=== PATIENT | female | born 1945 | race Caucasian/White ===

== ENCOUNTER 2016-06-05 19:42 | Emergency (ER) | payer MEDICARE ==
[2016-06-05] MEDS ORDERED: ONDANSETRON 4 MG TAB.RAPDIS PO ONE (21:23)
--- NOTE | 2016-06-05 21:23 | ER Document Report ---
ED Medical Screen (RME) - General Stated Complaint: HEADACHE,NAUSEA Time seen by provider: 21:21 Mode of Arrival: Ambulatory Information source: Patient Notes: 71-year-old female presents to ED for nausea flank pain headache and vomiting since last night about 8:00. She was diagnosed with UTI yesterday and the primary doctor started her on on Bactrim yesterday. She's not able to keep the medicine down she vomits every time she takes. I have greeted and performed a rapid initial assessment of this patient. A comprehensive ED assessment and evaluation of the patient, analysis of test results and completion of medical decision making process will be conducted by an additional ED providers. TRAVEL OUTSIDE OF THE [place] IN LAST 30 DAYS: No - Related Data Allergies/Adverse Reactions: ibuprofen [From Motrin] Allergy (Mild, Verified 11/10/12 15:53) bleeding mucus membranes naproxen [From Naprosyn] Allergy (Mild, Verified 11/10/12 15:53) bleeding gums NSAID Allergy (Uncoded 11/17/14 18:42) Past Medical History - Past Medical History Cardiac Medical History: Denies: Hx Heart Attack, Hx Hypertension Pulmonary Medical History: Denies: Hx Asthma Neurological Medical History: Reports: Hx Migraine. Denies: Hx Cerebrovascular Accident, Hx Seizures GI Medical History: Denies: Hx Hepatitis, Hx Hiatal Hernia, Hx Ulcer Musculoskeltal Medical History: Reports Hx Arthritis - rheumatoid Infectious Medical History: Denies: Hx Hepatitis Past Surgical History: Reports: Hx Appendectomy, Hx Hysterectomy, Hx Orthopedic Surgery - B shoulder, R hip/replacement Cervical fusion. Denies: Hx Mastectomy , Hx Open Heart Surgery, Hx Pacemaker - Immunizations Hx Diphtheria, Pertussis, Tetanus Vaccination: Yes
[2016-06-05] MEDS ORDERED: NORMAL SALINE 1000 ML 1,000 ML IV ONE ×2 (21:24→23:34)
[2016-06-05] MEDS ORDERED: ONDANSETRON HCL INJ/PF 4 MG/2 ML SDV IV ONE (21:25)
[2016-06-05] MEDS ORDERED: CEFTRIAXONE 1 GM/D5W RTU 50 ML IV ONE (21:25)
[2016-06-05] MEDS ORDERED: HYDROMORPHONE HCL INJ/PF 2 MG/ML AMPULE IV ONE (22:06)
--- NOTE | 2016-06-05 22:44 | ER Document Report ---
ED General - General Chief Complaint: Flank Pain Stated Complaint: HEADACHE,NAUSEA Mode of Arrival: Ambulatory Information source: Patient Notes: 71-year-old female history of multiple urinary tract infections who was recently diagnosed with a urinary tract infection yesterday started on Bactrim presents with complaints of continued back pain nausea vomiting. Patient states she has nausea vomiting episodes every time she gets a UTI. Denies any fevers. Patient has been unable to hold down her Bactrim. Patient has taken Zofran at home TRAVEL OUTSIDE OF THE [place] IN LAST 30 DAYS: No - HPI Onset: Yesterday Onset/Duration: Sudden Quality of pain: Achy Severity: Mild Pain Level: 1 Associated symptoms: Nausea, Vomiting Exacerbated by: Denies Relieved by: Denies Similar symptoms previously: Yes Recently seen / treated by doctor: Yes - Related Data Allergies/Adverse Reactions: ibuprofen [From Motrin] Allergy (Mild, Verified 06/05/16 21:21) bleeding mucus membranes naproxen [From Naprosyn] Allergy (Mild, Verified 06/05/16 21:21) bleeding gums NSAID Allergy (Uncoded 06/05/16 21:21) Past Medical History - General Information source: Patient - Social History Smoking Status: Never Smoker Cigarette use (# per day): No Chew tobacco use (# tins/day): No Smoking Education Provided: No Frequency of alcohol use: None Drug Abuse: None Family History: Reviewed & Not Pertinent Patient has suicidal ideation: No Patient has homicidal ideation: No - Past Medical History Cardiac Medical History: Denies: Hx Heart Attack, Hx Hypertension Pulmonary Medical History: Denies: Hx Asthma Neurological Medical History: Reports: Hx Migraine. Denies: Hx Cerebrovascular Accident, Hx Seizures Renal/ Medical History: Denies: Hx Peritoneal Dialysis GI Medical History: Denies: Hx Hepatitis, Hx Hiatal Hernia, Hx Ulcer Musculoskeltal Medical History: Reports Hx Arthritis - rheumatoid Infectious Medical History: Denies: Hx Hepatitis Past Surgical History: Reports: Hx Appendectomy, Hx Hysterectomy, Hx Orthopedic Surgery - B shoulder, R hip/replacement Cervical fusion. Denies: Hx Mastectomy , Hx Open Heart Surgery, Hx Pacemaker - Immunizations Hx Diphtheria, Pertussis, Tetanus Vaccination: Yes Review of Systems - Review of Systems Notes: REVIEW OF SYSTEMS: CONSTITUTIONAL : Denies fever, chills, or sweats. Denies recent illness. EENT: Denies eye, ear, throat, or mouth pain or symptoms. Denies nasal or sinus congestion or discharge. Denies throat, tongue, or mouth swelling or difficulty swallowing. CARDIOVASCULAR: Denies chest pain. Denies palpitations or racing or irregular heart beat. Denies ankle edema. RESPIRATORY: Denies cough, cold, or chest congestion. Denies shortness of breath, difficulty breathing, or wheezing. GASTROINTESTINAL: Admits to left flank pain GENITOURINARY: Admits to burning on urination FEMALE GENITOURINARY: Denies vaginal bleeding, heavy or abnormal periods, irregular periods. Denies vaginal discharge or odor. MUSCULOSKELETAL: Denies back or neck pain or stiffness. Denies joint pain or swelling. SKIN: Denies rash, lesions or sores. HEMATOLOGIC : Denies easy bruising or bleeding. LYMPHATIC: Denies swollen, enlarged glands. NEUROLOGICAL: Denies confusion or altered mental status. Denies passing out or loss of consciousness. Denies dizziness or lightheadedness. Denies headache. Denies weakness or paralysis or loss of use of either side. Denies problems with gait or speech. Denies sensory loss, numbness, or tingling. Denies seizures. PSYCHIATRIC: Denies anxiety or stress. Denies depression, suicidal ideation, or homicidal ideation. ALL OTHER SYSTEMS REVIEWED AND NEGATIVE. Dictation was performed using [employer] voice recognition software PHYSICAL EXAMINATION: GENERAL: Well-appearing, well-nourished and in no acute distress. HEAD: Atraumatic, normocephalic. EYES: Pupils equal round and reactive to light, extraocular movements intact, conjunctiva are normal. ENT: Nares patent, oropharynx clear without exudates. Moist mucous membranes. NECK: Normal range of motion, supple without lymphadenopathy LUNGS: Breath sounds clear to auscultation bilaterally and equal. No wheezes rales or rhonchi. HEART: Regular rate and rhythm without murmurs ABDOMEN: Soft, nontender, nondistended abdomen. No guarding, no rebound. No masses appreciated. Left CVA tenderness Female : deferred Musculoskeletal: Normal range of motion, no pitting or edema. No cyanosis. NEUROLOGICAL: Cranial nerves grossly intact. Normal speech, normal gait. Normal sensory, motor exams PSYCH: Normal mood, normal affect. SKIN: Warm, Dry, normal turgor, no rashes or lesions noted. Physical Exam - Vital signs Vitals: Temp Pulse Resp BP Pulse Ox 98.1 F 96 16 145/63 H 97 06/05/16 21:24 06/05/16 21:24 06/05/16 21:24 06/05/16 21:24 06/05/16 21:24 Course - Re-evaluation Re-evalutation: 06/05/16 22:47 Patient has probable kidney infection, Jose Raul is pending she'll be given antibiotics and is otherwise stable 06/05/16 23:34 pt feels much better, will ocntinue fluid hydration 06/06/16 00:07 Patient's urinalysis is pending still 06/06/16 00:31 Patient otherwise looks well at this time, I will discharge home once fluids have finished After performing a Medical Screening Examination, I estimate there is LOW risk for ACUTE APPENDICITIS, BOWEL OBSTRUCTION, ACUTE CHOLECYSTITIS, PERFORATED DIVERTICULITIS, INCARCERATED HERNIA, PANCREATITIS, PELVIC INFLAMMATORY DISEASE, PERFORATED ULCER, ECTOPIC , or TUBO-OVARIAN ABSCESS, thus I consider the discharge disposition reasonable. Also, there is no evidence or peritonitis , sepsis, or toxicity. The patient and I have discussed the diagnosis and risks , and we agree with discharging home with close follow-up with the understanding that symptoms and presentations can change. We also discussed returning to the Emergency Department immediately if new or worsening symptoms occur. We have discussed the symptoms which are most concerning (e.g., bloody stool, fever, changing or worsening pain, vomiting) that necessitate immediate return. - Vital Signs Vital signs: Temp Pulse Resp BP Pulse Ox 98.1 F 96 16 145/63 H 97 06/05/16 21:24 06/05/16 21:24 06/05/16 21:24 06/05/16 21:24 06/05/16 21:24 - Laboratory Result Diagrams: 06/05/16 22:44 06/05/16 22:44 Laboratory results interpreted by me: 06/05/16 06/05/16 22:44 22:44 WBC 14.7 H Seg Neuts % (Manual) 91 H Lymphocytes % (Manual) 1 L Abs Neuts (Manual) 13.4 H Abs Lymphs (Manual) 0.1 L Sodium 134.9 L AST 39 H Discharge - Discharge Clinical Impression: Nausea vomiting and diarrhea Urinary tract infection Qualifiers: Urinary tract infection type: site unspecified Hematuria presence: without hematuria Qualified Code(s): N39.0 - Urinary tract infection, site not specified Condition: Stable Disposition: HOME, SELF-CARE Instructions: Urinary Tract Infection ([facility]), Vomiting ([facility]) Prescriptions: Oxycodone HCl/Acetaminophen [Percocet 5-325 mg Tablet] 1 - 2 tab PO Q4H PRN #15 tablet PRN Reason: Promethazine HCl 25 mg PO Q8 #30 tablet Promethazine HCl 25 mg RC Q8 #20 supp.rect Referrals: DEANGELO QUAN MD [Primary Care Provider] - Follow up tomorrow
[2016-06-05 23:03] LABS: HEMATOCRIT 39.5 % (36.0-47.0); HEMOGLOBIN 13.4 g/dL (12.0-15.5); HGB HCT DIFFERENCE 0.7; MEAN CORPUSCULAR HEMOGLOBIN 32.4 pg (27.0-33.4); MEAN CORPUSCULAR VOLUME 95 fl (80-97); RED BLOOD COUNT 4.15 10^6/uL (3.72-5.28); RED CELL DISTRIBUTION WIDTH 12.7 % (11.5-14.0); WHITE BLOOD COUNT 14.7 10^3/uL (4.0-10.5)
[2016-06-05 23:16] LABS: ALANINE AMINOTRANSFERASE 38 U/L (9-52); ALKALINE PHOSPHATASE 85 U/L (38-126); ANION GAP 10 (5-19); ASPARTATE AMINO TRANSFERASE 39 U/L (14-36); BILIRUBIN,TOTAL 1.1 mg/dL (0.2-1.3); BLOOD UREA NITROGEN 15 mg/dL (7-20); CALCIUM 9.5 mg/dL (8.4-10.2); CARBON DIOXIDE 27 mmol/L (22-30); CHLORIDE 98 mmol/L (98-107); CREATININE RESULT 0.89 mg/dL (0.52-1.25); GLUCOSE 101 mg/dL (75-110); SODIUM 134.9 mmol/L (137-145)
[2016-06-05 23:23] LABS: BASOPHILS % (MANUAL) 1 % (0-2); EOSINOPHILS % (MANUAL) 2 % (0-6); LYMPHOCYTES % (MANUAL) 1 % (13-45); TOTAL CELLS COUNTED 100
[2016-06-05 23:24] LABS: RBC MORPHOLOGY COMMENT NORMO-CYTIC/CHROMIC
[2016-06-06] MEDS ORDERED: DIPHENHYDRAMINE HCL 50 MG/ML VIAL IV ONE (00:17)
[2016-06-06] MEDS ORDERED: METOCLOPRAMIDE HCL INJ/PF 10 MG/2 ML SDV IV ONE (00:18)
[2016-06-06 00:27] LABS: APPEARANCE,URINE SLIGHTLY-CLOUDY; BILIRUBIN,URINE NEGATIVE (NEGATIVE); GLUCOSE, URINE NEGATIVE (NEGATIVE); KETONES,URINE TRACE mg/dL (NEGATIVE); LEUKOCYTE ESTERASE,URINE LARGE (NEGATIVE); NITRITE,URINE POSITIVE (NEGATIVE); PROTEIN,URINE NEGATIVE (NEGATIVE); URINE SPECIFIC GRAVITY 1.009; UROBILINOGEN,URINE NEGATIVE mg/dL (<2.0)
[2016-06-06 01:00] VITALS: BP 133/62
== END 2016-06-06 00:55 | disposition home or self-care (01) ==
LOC: ER 19:42
DX: N39.0 Urinary tract infection, site not specified (principal); R11.2 Nausea with vomiting, unspecified; R19.7 Diarrhea, unspecified; R10.9 Unspecified abdominal pain; R30.0 Dysuria; Z88.6 Allergy status to analgesic agent; Z88.8 Allergy status to other drugs, medicaments and biological substances; Z90.49 Acquired absence of other specified parts of digestive tract; Z90.710 Acquired absence of both cervix and uterus
CPT/HCPCS: 99283; 96361; 96375; 96365; 36415; 87040; 87086; 85025; 87088; 80053; 81001; 87186; J1200; J2765; J1170; J2405; J0696

== ENCOUNTER → 2016-06-23 | Outpatient (CLI) | payer MEDICARE ==
[2016-06-23 15:02] LABS: BLOOD UREA NITROGEN 8 mg/dL (7-20)
== END ==
LOC: OD 13:27
PROVIDERS: ATTEND Urology
DX: N39.0 Urinary tract infection, site not specified (principal)
CPT/HCPCS: 36415; 82565; 84520

== ENCOUNTER 2016-07-11 16:42 | Emergency (ER) | payer MEDICARE ==
[2016-07-11] MEDS ORDERED: ONDANSETRON 4 MG TAB.RAPDIS PO ONE (16:55)
--- NOTE | 2016-07-11 16:56 | ER Document Report ---
ED Medical Screen (RME) - General Stated Complaint: HEADACHE, VOMITING Mode of Arrival: Wheelchair Information source: Patient Notes: Patient woke up with headache pain this morning and has had nausea and vomiting. Patient took Imitrex at home relief of her symptoms. Patient states she has similar headaches like this 2 weeks ago. Patient denies any fever. Patient denies any head injury. Patient has been diagnosed with Escherichia coli in her urine and had a CAT scan to further evaluate this infection. hx: Lupus, rheumatoid arthritis, orthopedic surgery I have greeted and performed a rapid initial assessment of this patient. A comprehensive ED assessment and evaluation of the patient, analysis of test results and completion of the medical decision making process will be conducted by additional ED providers. TRAVEL OUTSIDE OF THE [place] IN LAST 30 DAYS: No - Related Data Allergies/Adverse Reactions: ibuprofen [From Motrin] Allergy (Mild, Verified 07/11/16 16:55) bleeding mucus membranes naproxen [From Naprosyn] Allergy (Mild, Verified 07/11/16 16:55) bleeding gums NSAID Allergy (Uncoded 07/11/16 16:55) Past Medical History - Past Medical History Cardiac Medical History: Denies: Hx Heart Attack, Hx Hypertension Pulmonary Medical History: Denies: Hx Asthma Neurological Medical History: Reports: Hx Migraine. Denies: Hx Cerebrovascular Accident, Hx Seizures Renal/ Medical History: Denies: Hx Peritoneal Dialysis GI Medical History: Denies: Hx Hepatitis, Hx Hiatal Hernia, Hx Ulcer Musculoskeltal Medical History: Reports Hx Arthritis - rheumatoid Infectious Medical History: Denies: Hx Hepatitis Past Surgical History: Reports: Hx Appendectomy, Hx Hysterectomy, Hx Orthopedic Surgery - B shoulder, R hip/replacement Cervical fusion. Denies: Hx Mastectomy , Hx Open Heart Surgery, Hx Pacemaker - Immunizations Hx Diphtheria, Pertussis, Tetanus Vaccination: Yes Physical Exam - Neurological Cognition: Normal Bharathi Coma Scale Eye Opening: Spontaneous [place] Coma Scale Verbal: Oriented Bharathi Coma Scale Motor: Obeys Commands [place] Coma Scale Total: 15
--- NOTE | 2016-07-11 21:30 | ER Document Report ---
ED Headache - General Chief Complaint: Headache Stated Complaint: HEADACHE, VOMITING Time seen by provider: 21:30 Mode of Arrival: Wheelchair Information source: Patient TRAVEL OUTSIDE OF THE [place] IN LAST 30 DAYS: No - HPI Patient complains to provider of: Headache, "Migraine" Patient reports: Frequent migraines, Hx chronic headaches Onset: This morning Onset was: Gradual Timing: Still present Quality of pain: Achy, Pressure Severity: Moderate Pain Level: 4 Associated symptoms: Nausea/vomiting, Photophobia Exacerbated by: Light Similar symptoms previously: Yes Recently seen / treated by doctor: Yes Notes: Patient is a 71-year-old female who presents to the emergency room complaining of headache with nausea this started around 6 AM and worsened throughout the day , she denies any injury, no fever or chills, no sinus congestion, she does report a history of similar symptoms in the past and was seen in this emergency room approximately 2 weeks ago for the same, her headache resolved after her visit here 2 weeks ago and did not return again until today, she does report there has been some possible coincidental correlation with urinary tract infections causing her headaches, she denies any urinary symptoms today and is currently taking Macrobid - Related Data Allergies/Adverse Reactions: ibuprofen [From Motrin] Allergy (Mild, Verified 07/11/16 16:55) bleeding mucus membranes naproxen [From Naprosyn] Allergy (Mild, Verified 07/11/16 16:55) bleeding gums NSAID Allergy (Uncoded 07/11/16 16:55) Past Medical History - General Information source: Patient - Social History Smoking Status: Never Smoker Family History: Reviewed & Not Pertinent - Past Medical History Cardiac Medical History: Denies: Hx Heart Attack, Hx Hypertension Pulmonary Medical History: Denies: Hx Asthma Neurological Medical History: Reports: Hx Migraine. Denies: Hx Cerebrovascular Accident, Hx Seizures Renal/ Medical History: Denies: Hx Peritoneal Dialysis GI Medical History: Denies: Hx Hepatitis, Hx Hiatal Hernia, Hx Ulcer Musculoskeltal Medical History: Reports Hx Arthritis - rheumatoid Infectious Medical History: Denies: Hx Hepatitis Past Surgical History: Reports: Hx Appendectomy, Hx Hysterectomy, Hx Orthopedic Surgery - B shoulder, R hip/replacement Cervical fusion. Denies: Hx Mastectomy , Hx Open Heart Surgery, Hx Pacemaker - Immunizations Hx Diphtheria, Pertussis, Tetanus Vaccination: Yes Review of Systems - Review of Systems Constitutional: No symptoms reported EENT: No symptoms reported Cardiovascular: No symptoms reported Respiratory: No symptoms reported Gastrointestinal: Nausea Genitourinary: No symptoms reported Female Genitourinary: No symptoms reported Musculoskeletal: No symptoms reported Skin: No symptoms reported Hematologic/Lymphatic: No symptoms reported Neurological/Psychological: Headaches -: Yes All other systems reviewed and negative Physical Exam - Vital signs Vitals: Temp Pulse Resp BP Pulse Ox 97.7 F 86 14 154/76 H 99 07/11/16 16:55 07/11/16 16:55 07/11/16 16:55 07/11/16 16:55 07/11/16 16:55 Interpretation: Normal - General General appearance: Alert In distress: Mild - Appears in pain - HEENT Head: Normocephalic, Atraumatic Eyes: Normal Conjunctiva: Normal Extraocular movements intact: Yes Eyelashes: Normal Pupils: PERRL - Respiratory Respiratory status: No respiratory distress Chest status: Nontender Breath sounds: Normal Chest palpation: Normal - Cardiovascular Rhythm: Regular Heart sounds: Normal auscultation Murmur: No - Abdominal Inspection: Normal Distension: No distension Bowel sounds: Normal Tenderness: Nontender Organomegaly: No organomegaly - Back Back: Normal, Nontender - Extremities General upper extremity: Normal inspection, Nontender, Normal color, Normal ROM , Normal temperature General lower extremity: Normal inspection, Nontender, Normal color, Normal ROM , Normal temperature, Normal weight bearing. No: Marie's sign - Neurological Neuro grossly intact: Yes Cognition: Normal Orientation: AAOx4 Bharathi Coma Scale Eye Opening: Spontaneous Bharathi Coma Scale Verbal: Oriented Bharathi Coma Scale Motor: Obeys Commands Bharathi Coma Scale Total: 15 Speech: Normal Motor strength normal: LUE, RUE, LLE, RLE Sensory: Normal - Psychological Associated symptoms: Normal affect, Normal mood - Skin Skin Temperature: Warm Skin Moisture: Dry Skin Color: Normal Course - Re-evaluation Re-evalutation: 07/11/16 23:47 Patient reports feeling much better and wants to go home - Vital Signs Vital signs: Temp Pulse Resp BP Pulse Ox 98.1 F 94 18 135/59 H 97 07/12/16 01:14 07/12/16 01:14 07/12/16 01:14 07/12/16 01:14 07/12/16 01:14 Discharge - Discharge Clinical Impression: Headache Qualifiers: Headache type: unspecified Headache chronicity pattern: acute headache Intractability: not intractable Qualified Code(s): R51 - Headache Condition: Stable Disposition: HOME, SELF-CARE Instructions: Headache ([facility]) Additional Instructions: Follow up with your primary care provider in one to 2 days. Return to the emergency room immediately if symptoms worsen or any additional concerns. Referrals: ADOLFO QUAN MD [Primary Care Provider] - Follow up as needed
[2016-07-11] MEDS ORDERED: METOCLOPRAMIDE HCL INJ/PF 10 MG/2 ML SDV IV ONE ×2 (21:31→22:53)
[2016-07-11] MEDS ORDERED: MORPHINE SULFATE 10 MG/ML INJ IV ONE (21:31)
[2016-07-11] MEDS ORDERED: NORMAL SALINE 1000 ML 1,000 ML IV PRN ×2 (21:31→23:52)
[2016-07-11] MEDS ORDERED: HYDROMORPHONE HCL INJ/PF 2 MG/ML AMPULE IV ONE (22:53)
[2016-07-11] MEDS ORDERED: DIAZEPAM INJ 10 MG/2 ML DISP.SYRIN IV ONE (22:54)
[2016-07-11] MEDS: NORMAL SALINE 1000 ML 1,000 ML IV PRN ×2 (23:40→23:58)
[2016-07-11] MEDS ORDERED: KETOROLAC TROMETHAMINE INJ/PF 30 MG/1 ML SDV IV ONE (23:52)
[2016-07-11] MEDS ORDERED: ONDANSETRON HCL INJ/PF 4 MG/2 ML SDV IV ONE (23:52)
[2016-07-12 01:16] VITALS: BP 135/59
== END 2016-07-12 01:21 | disposition home or self-care (01) ==
LOC: ER 16:42
DX: R51 Headache (principal); R11.10 Vomiting, unspecified
CPT/HCPCS: 99283; 96361; 96374; 96375; A9270; J1885; J2765; J2270; J2405; J7030; S0119

== ENCOUNTER → 2016-07-15 | Outpatient (CLI) | payer MEDICARE | LOC: RAD 16:15 | PROVIDERS: ATTEND Internal Medicine Rheumatology | DX: M54.16 Radiculopathy, lumbar region (principal) | CPT/HCPCS: 72158; A9577 ==

== ENCOUNTER 2016-11-15 13:19 | Emergency (ER) | payer MEDICARE ==
[2016-11-15] MEDS ORDERED: KETOROLAC TROMETHAMINE INJ/PF 30 MG/1 ML SDV IV ONE (13:32)
[2016-11-15] MEDS ORDERED: ONDANSETRON HCL INJ/PF 4 MG/2 ML SDV IV ONE (13:32)
--- NOTE | 2016-11-15 13:34 | ER Document Report ---
ED Medical Screen (RME) - General Chief Complaint: Headache Stated Complaint: HEADACHE Time Seen by Provider: 11/15/16 13:25 Mode of Arrival: Ambulatory Information source: Patient TRAVEL OUTSIDE OF THE [place] IN LAST 30 DAYS: No - HPI Patient complains to provider of: headache Onset: This morning Onset/Duration: Gradual Quality of pain: Achy, Fullness, Pressure Severity: Moderate Pain Level: 4 Associated Symptoms: Nausea, Vomiting Notes: 11/15/16 13:33 Patient is a 71-year-old female who presents to the emergency room complaining of headache that started approximately 5 hours ago and has worsened, she reports nausea and vomiting, denies fever, no head injury, has a history of prior episodes of similar headaches in the past - Related Data Allergies/Adverse Reactions: ibuprofen [From Motrin] Allergy (Mild, Verified 11/15/16 13:23) bleeding mucus membranes naproxen [From Naprosyn] Allergy (Mild, Verified 11/15/16 13:23) bleeding gums NSAID Allergy (Uncoded 11/15/16 13:23) Past Medical History - Past Medical History Cardiac Medical History: Denies: Hx Heart Attack, Hx Hypertension Pulmonary Medical History: Denies: Hx Asthma Neurological Medical History: Reports: Hx Migraine. Denies: Hx Cerebrovascular Accident, Hx Seizures Renal/ Medical History: Denies: Hx Peritoneal Dialysis GI Medical History: Denies: Hx Hepatitis, Hx Hiatal Hernia, Hx Ulcer Musculoskeltal Medical History: Reports Hx Arthritis - rheumatoid Infectious Medical History: Denies: Hx Hepatitis Past Surgical History: Reports: Hx Appendectomy, Hx Hysterectomy, Hx Orthopedic Surgery - B shoulder, R hip/replacement Cervical fusion. Denies: Hx Mastectomy , Hx Open Heart Surgery, Hx Pacemaker - Immunizations Hx Diphtheria, Pertussis, Tetanus Vaccination: Yes Physical Exam - Vital signs Vitals: Temp Pulse Resp BP Pulse Ox 97.6 F 85 20 172/86 H 99 11/15/16 13:22 11/15/16 13:22 11/15/16 13:22 11/15/16 13:22 11/15/16 13:22 Course - Vital Signs Vital signs: Temp Pulse Resp BP Pulse Ox 97.6 F 85 20 172/86 H 99 11/15/16 13:22 11/15/16 13:22 11/15/16 13:22 11/15/16 13:22 11/15/16 13:22
[2016-11-15] MEDS: NORMAL SALINE 1000 ML 1,000 ML IV PRN ×2 (13:47→14:56)
[2016-11-15] MEDS ORDERED: METOCLOPRAMIDE HCL INJ/PF 10 MG/2 ML SDV IV ONE (14:35)
[2016-11-15] MEDS ORDERED: DIPHENHYDRAMINE HCL 50 MG/ML VIAL IV ONE (14:35)
[2016-11-15] MEDS ORDERED: NORMAL SALINE 1000 ML 1,000 ML IV PRN (14:35)
[2016-11-15] MEDS ORDERED: MORPHINE SULFATE 10 MG/ML INJ IV ONE (15:08)
[2016-11-15 15:39] VITALS: BP 155/65
--- NOTE | 2016-11-15 15:45 | ER Document Report ---
ED Headache - General Chief Complaint: Headache Stated Complaint: HEADACHE Time Seen by Provider: 11/15/16 13:25 Mode of Arrival: Ambulatory Information source: Patient TRAVEL OUTSIDE OF THE [place] IN LAST 30 DAYS: No - HPI Patient complains to provider of: Headache, "Migraine" Patient reports: Frequent migraines Onset: This morning Onset was: Gradual Timing: Still present Quality of pain: Achy, Fullness, Pressure Severity: Moderate Pain Level: 4 Associated symptoms: Nausea/vomiting Similar symptoms previously: Yes Recently seen / treated by doctor: Yes Notes: 71-year-old female presents to the emergency room for a headache that started approximately 5 hours prior to arrival, with pain and pressure, mainly in the frontal and temporal areas, she has nausea with vomiting that started after the headache, no fever, no head injury, history of similar headache previously - Related Data Allergies/Adverse Reactions: ibuprofen [From Motrin] Allergy (Mild, Verified 11/15/16 13:23) bleeding mucus membranes naproxen [From Naprosyn] Allergy (Mild, Verified 11/15/16 13:23) bleeding gums NSAID Allergy (Uncoded 11/15/16 13:23) Past Medical History - General Information source: Patient - Social History Smoking Status: Never Smoker Chew tobacco use (# tins/day): No Frequency of alcohol use: None Drug Abuse: None Family History: Reviewed & Not Pertinent - Past Medical History Cardiac Medical History: Denies: Hx Heart Attack, Hx Hypertension Pulmonary Medical History: Denies: Hx Asthma Neurological Medical History: Reports: Hx Migraine. Denies: Hx Cerebrovascular Accident, Hx Seizures Renal/ Medical History: Denies: Hx Peritoneal Dialysis GI Medical History: Denies: Hx Hepatitis, Hx Hiatal Hernia, Hx Ulcer Musculoskeltal Medical History: Reports Hx Arthritis - rheumatoid Infectious Medical History: Denies: Hx Hepatitis Past Surgical History: Reports: Hx Appendectomy, Hx Hysterectomy, Hx Orthopedic Surgery - B shoulder, R hip/replacement Cervical fusion. Denies: Hx Mastectomy , Hx Open Heart Surgery, Hx Pacemaker - Immunizations Hx Diphtheria, Pertussis, Tetanus Vaccination: Yes Review of Systems - Review of Systems Constitutional: No symptoms reported EENT: No symptoms reported Cardiovascular: No symptoms reported Respiratory: No symptoms reported Gastrointestinal: Nausea, Vomiting Genitourinary: No symptoms reported Female Genitourinary: No symptoms reported Musculoskeletal: No symptoms reported Skin: No symptoms reported Hematologic/Lymphatic: No symptoms reported Neurological/Psychological: Headaches -: Yes All other systems reviewed and negative Physical Exam - Vital signs Vitals: Temp Pulse Resp BP Pulse Ox 97.6 F 85 20 172/86 H 99 11/15/16 13:22 11/15/16 13:22 11/15/16 13:22 11/15/16 13:22 11/15/16 13:22 Interpretation: Hypertensive - General General appearance: Alert In distress: None Notes: Appears to be in pain - HEENT Head: Normocephalic, Atraumatic Eyes: Normal Conjunctiva: Normal Extraocular movements intact: Yes Eyelashes: Normal Pupils: PERRL - Respiratory Respiratory status: No respiratory distress - Cardiovascular Rhythm: Regular - Abdominal Inspection: Normal - Back Back: Normal - Extremities General upper extremity: Normal inspection, Nontender, Normal color, Normal ROM , Normal temperature General lower extremity: Normal inspection, Nontender, Normal color, Normal ROM , Normal temperature, Normal weight bearing. No: Marie's sign - Neurological Neuro grossly intact: Yes Cognition: Normal Orientation: AAOx4 Bharathi Coma Scale Eye Opening: Spontaneous [place] Coma Scale Verbal: Oriented [place] Coma Scale Motor: Obeys Commands Bharathi Coma Scale Total: 15 Speech: Normal Motor strength normal: LUE, RUE, LLE, RLE Sensory: Normal - Psychological Associated symptoms: Normal affect, Normal mood - Skin Skin Temperature: Warm Skin Moisture: Dry Skin Color: Normal Course - Re-evaluation Re-evalutation: 11/15/16 15:47 Patient reports feeling much better after several rounds of fluids and medications, pain is resolved and she is ready to go home, patient was given a prescription for Reglan as well as instructed to follow-up with her primary care provider and neurologist, advised to return if any additional concerns, patient acknowledges understanding and agreement with this plan - Vital Signs Vital signs: Temp Pulse Resp BP Pulse Ox 97.6 F 77 18 155/65 H 96 11/15/16 15:38 11/15/16 15:38 11/15/16 15:38 11/15/16 15:38 11/15/16 15:38 Discharge - Discharge Clinical Impression: Migraine headache Qualifiers: Migraine type: unspecified Status migrainosus presence: without status migrainosus Intractability: not intractable Qualified Code(s): G43.909 - Migraine, unspecified, not intractable, without status migrainosus Condition: Stable Disposition: HOME, SELF-CARE Instructions: Antinausea Medication ([facility]), Headache ([facility]), Toradol Injection ( [facility]) Additional Instructions: Follow up with your primary care provider in one to 2 days. Return to the emergency room immediately if symptoms worsen or any additional concerns. Prescriptions: Metoclopramide HCl [Reglan 10 mg Tablet] 1 - 2 tab PO ASDIR PRN #25 tablet PRN Reason:
== END 2016-11-15 15:50 | disposition home or self-care (01) ==
LOC: ER 13:19
DX: G43.909 Migraine, unspecified, not intractable, without status migrainosus (principal); R11.2 Nausea with vomiting, unspecified; Z88.6 Allergy status to analgesic agent; Z88.8 Allergy status to other drugs, medicaments and biological substances
CPT/HCPCS: 99284; 96361; 96374; 96375; J1200; J1885; J2765; J2270; J2405; J7030

== ENCOUNTER 2017-03-04 12:31 | Emergency (ER) | payer MEDICARE ==
[2017-03-04] MEDS ORDERED: NORMAL SALINE 1000 ML 1,000 ML IV ONE ×2 (13:08→14:36)
[2017-03-04] MEDS ORDERED: ONDANSETRON HCL INJ/PF 4 MG/2 ML SDV IV ONE (13:08)
--- NOTE | 2017-03-04 13:12 | ER Document Report ---
ED Medical Screen (RME) - General Chief Complaint: Vomiting Stated Complaint: VOMITING Time Seen by Provider: 03/04/17 13:07 Notes: The patient is a 72-year-old female, past medical history chronic pain from rheumatoid arthritis and lupus, presents with 2 days of nausea, vomiting and chest congestion. She saw her primary care physician yesterday and had a flu swab and chest x-ray, but she does not know the results. She is having abdominal cramping, but no abdominal pain. PE: Tachycardia, no abdominal tenderness, normal bowel sounds, no CVA tenderness I have greeted and performed a rapid initial assessment of this patient. A comprehensive ED assessment and evaluation of the patient, analysis of test results and completion of the medical decision making process will be conducted by additional ED providers. TRAVEL OUTSIDE OF THE [place] IN LAST 30 DAYS: No - Related Data Allergies/Adverse Reactions: ibuprofen [From Motrin] Allergy (Mild, Verified 03/04/17 12:44) bleeding mucus membranes naproxen [From Naprosyn] Allergy (Mild, Verified 03/04/17 12:44) bleeding gums NSAID Allergy (Uncoded 11/15/16 13:23) Past Medical History - Social History Chew tobacco use (# tins/day): No Frequency of alcohol use: None Drug Abuse: None - Past Medical History Cardiac Medical History: Denies: Hx Heart Attack, Hx Hypertension Pulmonary Medical History: Denies: Hx Asthma Neurological Medical History: Reports: Hx Migraine. Denies: Hx Cerebrovascular Accident, Hx Seizures Renal/ Medical History: Denies: Hx Peritoneal Dialysis GI Medical History: Denies: Hx Hepatitis, Hx Hiatal Hernia, Hx Ulcer Musculoskeltal Medical History: Reports Hx Arthritis - rheumatoid Infectious Medical History: Denies: Hx Hepatitis Past Surgical History: Reports: Hx Appendectomy, Hx Hysterectomy, Hx Orthopedic Surgery - B shoulder, R hip/replacement Cervical fusion. Denies: Hx Mastectomy , Hx Open Heart Surgery, Hx Pacemaker - Immunizations Hx Diphtheria, Pertussis, Tetanus Vaccination: Yes Physical Exam - Vital signs Vitals: Temp Pulse Resp BP Pulse Ox 98.5 F 115 H 20 156/80 H 95 03/04/17 12:42 03/04/17 12:42 03/04/17 12:42 03/04/17 12:42 03/04/17 12:42 Course - Vital Signs Vital signs: Temp Pulse Resp BP Pulse Ox 98.5 F 115 H 20 156/80 H 95 03/04/17 12:42 03/04/17 12:42 03/04/17 12:42 03/04/17 12:42 03/04/17 12:42
[2017-03-04 13:39] LABS: HEMATOCRIT 43.7 % (36.0-47.0); HEMOGLOBIN 15.4 g/dL (12.0-15.5); HGB HCT DIFFERENCE 2.5; MEAN CORPUSCULAR HEMOGLOBIN 32.7 pg (27.0-33.4); MEAN CORPUSCULAR HGB CONC 35.4 g/dL (32.0-36.0); MEAN CORPUSCULAR VOLUME 92 fl (80-97); RED BLOOD COUNT 4.73 10^6/uL (3.72-5.28); RED CELL DISTRIBUTION WIDTH 13.4 % (11.5-14.0); WHITE BLOOD COUNT 12.3 10^3/uL (4.0-10.5)
[2017-03-04 14:06] LABS: ALANINE AMINOTRANSFERASE 34 U/L (9-52); ALBUMIN 4.3 g/dL (3.5-5.0); ALKALINE PHOSPHATASE 113 U/L (38-126); ANION GAP 14 (5-19); ASPARTATE AMINO TRANSFERASE 29 U/L (14-36); BILIRUBIN,DIRECT 0.5 mg/dL (0.0-0.4); BLOOD UREA NITROGEN 11 mg/dL (7-20); CALCIUM 10.5 mg/dL (8.4-10.2); CARBON DIOXIDE 26 mmol/L (22-30); CHLORIDE 96 mmol/L (98-107); CREATINE KINASE 109 U/L (30-135); CREATININE RESULT 0.48 mg/dL (0.52-1.25); GLUCOSE 120 mg/dL (75-110); LIPASE 27.3 U/L (23-300); POTASSIUM 3.9 mmol/L (3.6-5.0); SODIUM 136.2 mmol/L (137-145); TOTAL PROTEIN 7.1 g/dL (6.3-8.2)
[2017-03-04 14:12] LABS: BAND NEUTROPHILS % (MANUAL) 1 % (3-5); BASOPHILS % (MANUAL) 0 % (0-2); EOSINOPHILS % (MANUAL) 1 % (0-6); LYMPHOCYTES % (MANUAL) 7 % (13-45); POLYCHROMASIA SLIGHT; TOTAL CELLS COUNTED 100; TOXIC GRANULATION SLIGHT
[2017-03-04] MEDS ORDERED: PROMETHAZINE HCL INJ 50 MG/1 ML VIAL IM ONE (14:35)
[2017-03-04] MEDS ORDERED: METOCLOPRAMIDE HCL INJ/PF 10 MG/2 ML SDV IV ONE (14:35)
[2017-03-04] MEDS ORDERED: OXYCODONE-ACETAMINOPHEN 5-325 MG TABLET PO ONE (15:13)
--- NOTE | 2017-03-04 15:16 | RADIOLOGY REPORT (SQ) ---
EXAM DESCRIPTION: CHEST PA/LAT COMPLETED DATE/TIME: 03/04/2017 2:56 pm REASON FOR STUDY: cough, hypoxemia COMPARISON: None. EXAM PARAMETERS: NUMBER OF VIEWS: two views TECHNIQUE: Digital Frontal and Lateral radiographic views of the chest acquired. RADIATION DOSE: NA LIMITATIONS: none FINDINGS: LUNGS AND PLEURA: No opacities, masses or pneumothorax. No pleural effusion. MEDIASTINUM AND HILAR STRUCTURES: No masses or contour abnormalities. HEART AND VASCULAR STRUCTURES: Mild cardiomegaly BONES: Osteoporotic. Old humeral head replacements. Lower cervical fusion hardware HARDWARE: None in the chest. OTHER: No other significant finding. IMPRESSION: Cardiomegaly. No acute infiltrates TECHNICAL DOCUMENTATION: JOB ID: [id number] [employer]- All Rights Reserved
[2017-03-04 16:54] LABS: APPEARANCE,URINE CLEAR; BILIRUBIN,URINE NEGATIVE (NEGATIVE); GLUCOSE, URINE 50 mg/dL (NEGATIVE); KETONES,URINE 80 mg/dL (NEGATIVE); LEUKOCYTE ESTERASE,URINE TRACE (NEGATIVE); NITRITE,URINE NEGATIVE (NEGATIVE); PROTEIN,URINE NEGATIVE (NEGATIVE); URINE SPECIFIC GRAVITY 1.008; UROBILINOGEN,URINE NEGATIVE mg/dL (<2.0)
--- NOTE | 2017-03-04 17:22 | ER Document Report ---
ED General - General Chief Complaint: Vomiting Stated Complaint: VOMITING Time Seen by Provider: 03/04/17 13:07 Mode of Arrival: Wheelchair Information source: Patient Notes: 72-year-old female who presents with complaints of nausea and vomiting which occurs every approximately 3 months presents with complaints of nausea vomiting. Patient denies any fevers or chills noted to be tachycardic on arrival TRAVEL OUTSIDE OF THE [place] IN LAST 30 DAYS: No - HPI Onset: Just prior to arrival Onset/Duration: Sudden Quality of pain: Cramping Severity: Mild Pain Level: 1 Associated symptoms: Nausea, Vomiting Exacerbated by: Denies Relieved by: Denies Similar symptoms previously: Yes Recently seen / treated by doctor: Yes - Related Data Allergies/Adverse Reactions: ibuprofen [From Motrin] Allergy (Mild, Verified 03/04/17 12:44) bleeding mucus membranes naproxen [From Naprosyn] Allergy (Mild, Verified 03/04/17 12:44) bleeding gums NSAID Allergy (Uncoded 11/15/16 13:23) Past Medical History - Social History Smoking Status: Former Smoker Cigarette use (# per day): No Chew tobacco use (# tins/day): No Smoking Education Provided: No Frequency of alcohol use: None Drug Abuse: None Family History: Reviewed & Not Pertinent Patient has suicidal ideation: No Patient has homicidal ideation: No - Past Medical History Cardiac Medical History: Denies: Hx Heart Attack, Hx Hypertension Pulmonary Medical History: Denies: Hx Asthma Neurological Medical History: Reports: Hx Migraine. Denies: Hx Cerebrovascular Accident, Hx Seizures Renal/ Medical History: Denies: Hx Peritoneal Dialysis GI Medical History: Denies: Hx Hepatitis, Hx Hiatal Hernia, Hx Ulcer Musculoskeltal Medical History: Reports Hx Arthritis - rheumatoid Infectious Medical History: Denies: Hx Hepatitis Past Surgical History: Reports: Hx Appendectomy, Hx Hysterectomy, Hx Orthopedic Surgery - B shoulder, R hip/replacement Cervical fusion. Denies: Hx Mastectomy , Hx Open Heart Surgery, Hx Pacemaker - Immunizations Hx Diphtheria, Pertussis, Tetanus Vaccination: Yes Review of Systems - Review of Systems Notes: REVIEW OF SYSTEMS: CONSTITUTIONAL : Denies fever, chills, or sweats. Denies recent illness. EENT: Denies eye, ear, throat, or mouth pain or symptoms. Denies nasal or sinus congestion or discharge. Denies throat, tongue, or mouth swelling or difficulty swallowing. CARDIOVASCULAR: Denies chest pain. Denies palpitations or racing or irregular heart beat. Denies ankle edema. RESPIRATORY: Denies cough, cold, or chest congestion. Denies shortness of breath, difficulty breathing, or wheezing. GASTROINTESTINAL: Admits to nausea vomiting GENITOURINARY: Denies difficulty urinating, painful urination, burning, frequency, blood in urine, or discharge. FEMALE GENITOURINARY: Denies vaginal bleeding, heavy or abnormal periods, irregular periods. Denies vaginal discharge or odor. MUSCULOSKELETAL: Denies back or neck pain or stiffness. Denies joint pain or swelling. SKIN: Denies rash, lesions or sores. HEMATOLOGIC : Denies easy bruising or bleeding. LYMPHATIC: Denies swollen, enlarged glands. NEUROLOGICAL: Denies confusion or altered mental status. Denies passing out or loss of consciousness. Denies dizziness or lightheadedness. Denies headache. Denies weakness or paralysis or loss of use of either side. Denies problems with gait or speech. Denies sensory loss, numbness, or tingling. Denies seizures. PSYCHIATRIC: Denies anxiety or stress. Denies depression, suicidal ideation, or homicidal ideation. ALL OTHER SYSTEMS REVIEWED AND NEGATIVE. PHYSICAL EXAMINATION: GENERAL: Well-appearing, well-nourished and in no acute distress. HEAD: Atraumatic, normocephalic. EYES: Pupils equal round and reactive to light, extraocular movements intact, conjunctiva are normal. ENT: Nares patent, oropharynx clear without exudates. Moist mucous membranes. NECK: Normal range of motion, supple without lymphadenopathy LUNGS: Breath sounds clear to auscultation bilaterally and equal. No wheezes rales or rhonchi. HEART: Initially tachycardic but then resolves after IV fluids ABDOMEN: Soft, nontender, nondistended abdomen. No guarding, no rebound. No masses appreciated. Female : deferred Musculoskeletal: Normal range of motion, no pitting or edema. No cyanosis. NEUROLOGICAL: Cranial nerves grossly intact. Normal speech, normal gait. Normal sensory, motor exams PSYCH: Normal mood, normal affect. SKIN: Warm, Dry, normal turgor, no rashes or lesions noted. Dictation was performed using [employer] voice recognition software Physical Exam - Vital signs Vitals: Temp Pulse Resp BP Pulse Ox 98.5 F 115 H 20 156/80 H 95 11/16/17 12:42 03/04/17 12:42 03/04/17 12:42 03/04/17 12:42 03/04/17 12:42 Course - Re-evaluation Re-evalutation: 03/05/17 00:29 Patient was immediately given IV fluids nausea control and notes significant improvement of her symptoms. There is no sign of a UTI which family notes is usually the cause of these symptoms. Therefore I will discharge with understanding the must return if there are any other concerns Patient and are very happy with care After performing a Medical Screening Examination, I estimate there is LOW risk for ACUTE APPENDICITIS, BOWEL OBSTRUCTION, ACUTE CHOLECYSTITIS, PERFORATED DIVERTICULITIS, INCARCERATED HERNIA, PANCREATITIS, PELVIC INFLAMMATORY DISEASE, PERFORATED ULCER, ECTOPIC , or TUBO-OVARIAN ABSCESS, thus I consider the discharge disposition reasonable. Also, there is no evidence or peritonitis , sepsis, or toxicity. I have reevaluated this patient multiple times and no significant life threatening changes are noted. The patient and I have discussed the diagnosis and risks, and we agree with discharging home with close follow-up with the understanding that symptoms and presentations can change. We also discussed returning to the Emergency Department immediately if new or worsening symptoms occur. We have discussed the symptoms which are most concerning (e.g., bloody stool, fever, changing or worsening pain, vomiting) that necessitate immediate return. - Vital Signs Vital signs: Temp Pulse Resp BP Pulse Ox 98.5 F 115 H 16 144/75 H 91 L 03/04/17 12:42 03/04/17 12:42 03/04/17 17:44 03/04/17 17:44 03/04/17 17:44 - Laboratory Result Diagrams: 03/04/17 13:23 03/04/17 13:23 Laboratory results interpreted by me: 03/04/17 03/04/17 03/04/17 13:23 13:23 16:20 WBC 12.3 H Seg Neuts % (Manual) 85 H Band Neutrophils % 1 L Lymphocytes % (Manual) 7 L Abs Neuts (Manual) 10.6 H Sodium 136.2 L Chloride 96 L Creatinine 0.48 L Glucose 120 H Calcium 10.5 H Direct Bilirubin 0.5 H Urine Glucose (UA) 50 H Urine Ketones 80 H Urine Blood SMALL H Ur Leukocyte Esterase TRACE H Discharge - Discharge Clinical Impression: Nausea vomiting and diarrhea, Tachycardia, Dehydration Condition: Stable Disposition: HOME, SELF-CARE Instructions: Vomiting ([facility]) Additional Instructions: Follow up with your physician tomorrow for further care or return to the ED IMMEDIATELY if symptoms worsen or new concerns occur. If you cannot afford to follow up with your primary care physician a list of low cost clinics have been provided at the end of your discharge papers as well. Prescriptions: Promethazine HCl [Phenergan 25 mg Tablet] 1 - 2 tab PO Q6H PRN #15 tablet PRN Reason:
[2017-03-04 18:10] VITALS: BP 144/75
--- NOTE | 2017-03-05 09:36 | EKG REPORT ---
SEVERITY:- ABNORMAL ECG - SINUS TACHYCARDIA RIGHT ATRIAL ABNORMALITY LEFT AXIS DEVIATION LEFT VENTRICULAR HYPERTROPHY : Confirmed by: Karlos Streeter 05-Mar-2017 09:34:53
== END 2017-03-04 18:10 | disposition home or self-care (01) ==
LOC: ER 12:31
DX: R11.2 Nausea with vomiting, unspecified (principal); R19.7 Diarrhea, unspecified; R00.0 Tachycardia, unspecified; E86.0 Dehydration; Z96.641 Presence of right artificial hip joint; Z87.891 Personal history of nicotine dependence; Z98.1 Arthrodesis status
CPT/HCPCS: 93005; 99284; 96361; 96374; 96375; 36415; 82550; 83690; 85025; 80053; 81001; 84484; 83605; 71020; 93010; J2765; A9270; J2405; J7030

== ENCOUNTER → 2017-05-21 | Outpatient (CLI) | payer MEDICARE ==
--- NOTE | 2017-05-21 16:05 | WOMENS IMAGING REPORT ---
EXAM DESCRIPTION: BILAT SCREENING MAMMO W/CAD COMPLETED DATE/TIME: 05/21/2017 3:34 pm REASON FOR STUDY: ROUTINE SCREENING; Z12.31 Z12.31 ENCNTR SCREEN MAMMOGRAM FOR MALIGNANT NEOPLASM O F LORRI COMPARISON: 2014, 2015 TECHNIQUE: Standard craniocaudal and mediolateral oblique views of each breast recorded using [employer] l acquisition. LIMITATIONS: None. FINDINGS: Findings present which are benign by mammographic criteria. No suspicious masses, calcifi cations or architectural distortion. Pertinent benign findings: Stable bilateral breast parenchymal calcifications are present Read with the assistance of CAD. .[facility] - R2 [employer] Version 1.3 .[facility] Imaging - R2 Cenova Version 1.3 .[facility] - R2 Cenova Version 2.4 .[facility] - R2 Cenova Version 2.4 .[facility] - R2 [employer] Version 9.2 Benign mammographic findings may include one or more of the following: Smooth masses, popcorn/rim/co arse calcifications, asymmetries, post-procedure changes, and lesions with long-standing stability. IMPRESSION: BENIGN MAMMOGRAPHIC FINDINGS. BIRADS 2 BREAST DENSITY: b. There are scattered areas of fibroglandular density. BIRAD: 2 BENIGN FINDING(S) RECOMMENDATION: ROUTINE SCREENING COMMENT: The patient has been notified of the results by letter per MQSA requirements. Additional no tification policies are in place for contacting patient with suspicious or incomplete findings. Quality ID #[id number]: The [employer] recommends an annual screening mammogram for women aged 40 years or over. This facility utilizes a reminder system to ensure that all patients receive reminder letters, and/or direct phone calls for appointments. This includes reminders for routine scr eening mammograms, diagnostic mammograms, or other Breast Imaging Interventions when appropriate. Th is patient will be placed in the appropriate reminder system. The [employer] (ACR) has developed recommendations for screening MRI of the breast s in certain patient populations, to be used in conjunction with mammography. Breast MRI surveillanc e may be appropriate for women with more than 20% lifetime risk of developing breast cancer as deter mined by genetic testing, significant family history of the disease, or history of mantle radiation f or Hodgkins Disease. ACR Practice Guidelines 2008. TECHNICAL DOCUMENTATION: FINDING NUMBER: (1) ASSESSMENT: (1) JOB ID: [id number] [employer]- All Rights Reserved
== END ==
LOC: WI 15:05
PROVIDERS: ATTEND Internal Medicine
DX: Z12.31 Encounter for screening mammogram for malignant neoplasm of breast (principal)
CPT/HCPCS: 77067

== ENCOUNTER 2017-06-06 11:25 | Emergency (ER) | payer MEDICARE ==
--- NOTE | 2017-06-06 11:39 | ER Document Report ---
ED Neck/Back Problem - General Mode of Arrival: Medic Information source: Patient TRAVEL OUTSIDE OF THE [place] IN LAST 30 DAYS: No - HPI Patient complains to provider of: Pain, Lower back Onset: Other - 3-4 DAYS Onset: Gradual Timing: Constant, Waxing and waning Quality of pain: Burning Severity: Moderate Context: Other - NO INJURY Recent injury: No Associated symptoms: Radiation to leg - HAS H/O RADICULOPATHY Exacerbated by: Other - LYING FLAT Relieved by: Upright position, Lying on R side Similar symptoms previously: Yes Recently seen / treated by doctor: Yes <XIMENA MELCHOR - Last Filed: 06/06/17 20:28> <YADIRA MELLO V - Last Filed: 06/07/17 02:02> - General Stated Complaint: BACK PAIN Time Seen by Provider: 06/06/17 11:33 - HPI Notes: Patient has a long history of chronic low back pain secondary to severe degenerative disease. She was seen by her portfolio specialist at [facility] 6 days ago and received injections in the lower back. She had a good response, but 3 days ago began to notice increasing pain, and today the pain was intolerable so she came to the emergency department for evaluation. (XIMENA MELCHOR) - Related Data Allergies/Adverse Reactions: ibuprofen [From Motrin] Allergy (Mild, Verified 06/06/17 11:45) bleeding mucus membranes naproxen [From Naprosyn] Allergy (Mild, Verified 06/06/17 11:45) bleeding gums NSAID Allergy (Uncoded 06/06/17 11:45) Past Medical History - General Information source: Patient - Social History Smoking Status: Former Smoker Cigarette use (# per day): No Chew tobacco use (# tins/day): No Frequency of alcohol use: None Drug Abuse: None Lives with: Spouse/Significant other Family History: Reviewed & Not Pertinent Patient has suicidal ideation: No Patient has homicidal ideation: No - Past Medical History Cardiac Medical History: Denies: Hx Heart Attack, Hx Hypertension Pulmonary Medical History: Denies: Hx Asthma Neurological Medical History: Reports: Hx Migraine. Denies: Hx Cerebrovascular Accident, Hx Seizures Renal/ Medical History: Denies: Hx Peritoneal Dialysis GI Medical History: Denies: Hx Hepatitis, Hx Hiatal Hernia, Hx Ulcer Musculoskeltal Medical History: Reports Hx Arthritis - rheumatoid Infectious Medical History: Denies: Hx Hepatitis Past Surgical History: Reports: Hx Appendectomy, Hx Hysterectomy, Hx Orthopedic Surgery - B shoulder, R hip/replacement Cervical fusion. Denies: Hx Mastectomy , Hx Open Heart Surgery, Hx Pacemaker - Immunizations Hx Diphtheria, Pertussis, Tetanus Vaccination: Yes <XIMENA MELCHOR - Last Filed: 06/06/17 20:28> Review of Systems - Review of Systems Constitutional: No symptoms reported. denies: Chills, Fever EENT: No symptoms reported Cardiovascular: No symptoms reported Respiratory: No symptoms reported Gastrointestinal: No symptoms reported Genitourinary: No symptoms reported. denies: Incontinence, Retention Female Genitourinary: Post menopausal Musculoskeletal: See HPI Skin: No symptoms reported Neurological/Psychological: See HPI <XIMENA MELCHOR - Last Filed: 06/06/17 20:28> Physical Exam - Vital signs Interpretation: Hypertensive, Tachypneic. No: Febrile - General General appearance: Appears well, Alert In distress: None - HEENT Head: Normocephalic Eyes: Normal Conjunctiva: Normal Ears: Normal Nasal: Normal Mouth/Lips: Normal Mucous membranes: Normal - Respiratory Respiratory status: No respiratory distress Breath sounds: Normal - Cardiovascular Rhythm: Regular - Abdominal Inspection: Normal Distension: No distension - Back Back: Tender - R. PARASPINOUS, LOW LUMBAR & SACRAL - Extremities General upper extremity: Normal inspection General lower extremity: Normal inspection - Neurological Neuro grossly intact: Yes Cognition: Normal Orientation: AAOx4 - Psychological Associated symptoms: Normal affect, Normal mood - Skin Skin Temperature: Warm Skin Moisture: Dry Skin Color: Normal Skin Turgor: Elastic <XIMENA MELCHOR - Last Filed: 06/06/17 20:28> - Vital signs Vitals: Temp Pulse Resp BP Pulse Ox 97.5 F 100 30 H 145/63 H 99 06/06/17 11:45 06/06/17 11:45 06/06/17 11:45 06/06/17 11:45 06/06/17 11:45 Course - Laboratory Result Diagrams: 06/06/17 12:40 06/06/17 12:40 - Consults DR. MOREL Time consulted: 13:20 <XIMENA MELCHOR - Last Filed: 06/06/17 20:28> - Laboratory Result Diagrams: 06/06/17 12:40 06/06/17 12:40 <YADIRA MELLO V - Last Filed: 06/07/17 02:02> - Re-evaluation Re-evalutation: 06/06/17 20:40 Reevaluation: As patient was being mobilized prior to anticipated discharge she complained that she did not feel well and became very diaphoretic. She denied nausea, saying only that she did not feel well. Her pain remains improved but not totally resolved. I have ordered an intravenous fluid bolus and repeat vital signs, plus Accu-Chek. (XIMENA MELCHOR) 06/06/17 23:06 Patient sign out to me from previous provider for final disposition Patient is here for evaluation of chronic back pain for which she received MRI that did not reveal any acute findings other than disc disease Patient was given hydromorphone for pain control as well as high dose of steroids Upon reassessment patient is very confused, lethargic, does not make any sense, tangential, has a small component of aphasia At this point we will obtain CT scan of her brain as well as urinalysis to rule out acute intra-cranial injury that can explain her psychotic reaction versus possible infectious etiology that can be causing confusion Other possibility side effect to steroids or hydromorphone that can be cause confusion Reassess patient 06/07/17 01:01 CT scan of her brain without any acute intracranial pathology Patient complains of a headache, discussed her headache regimen with family They reported that she has similar symptoms when she has migraines and headaches We will give patient Imitrex given that she used to take it for her migraines Reassess patient Reassessment 2 AM Patient feels significantly better, headache resolved Urinalysis with no significant acute cystitis, patient is on prophylactic Macrobid Recommended to take Macrobid and recheck her urine with primary care physician Agree with disposition today, patient is much more awake, well-appearing They will follow up with [facility] tomorrow (YADIRA MELLO V) - Vital Signs Vital signs: Temp Pulse Resp BP Pulse Ox 99.1 F 105 H 18 159/79 H 93 06/06/17 21:39 06/06/17 21:39 06/06/17 21:39 06/06/17 21:39 06/06/17 21:39 - Laboratory Laboratory results interpreted by me: 06/06/17 06/06/17 06/06/17 12:40 12:40 20:58 Lymphocytes % 8.9 L Sodium 134.9 L Creatinine 0.44 L POC Glucose 116 H Calcium 10.4 H Direct Bilirubin 0.5 H Urine Glucose (UA) Urine Ketones Urine Blood Ur Leukocyte Esterase 06/06/17 06/07/17 23:00 01:00 Lymphocytes % Sodium Creatinine POC Glucose 137 H Calcium Direct Bilirubin Urine Glucose (UA) >=500 H Urine Ketones 20 H Urine Blood SMALL H Ur Leukocyte Esterase TRACE H - Consults DR. MOREL Reason for consultation: 06/06/17 20:37 Discussed by phone with Dr. Morel at [facility], who is patient's spine care doctor and performed recent spinal injections. Discussed radiologist's interpretation of recent MRI scan. Dr. Morel suggests treating with corticosteroids and, if response is satisfactory, follow-up in clinic tomorrow. (XIMENA MELCHOR) Discharge <XIMENA MELCHOR - Last Filed: 06/06/17 20:28> <YADIRA MELLO V - Last Filed: 06/07/17 02:02> - Discharge Clinical Impression: Acute exacerbation of chronic low back pain, Headache Condition: Stable Disposition: HOME, SELF-CARE Instructions: Corticosteroid Medication ([facility]), Low Back Pain ([facility]), Oral Narcotic Medication ([facility]), Pain Medication Injection ([facility]) Additional Instructions: REST, AVOID PAINFUL ACTIVITY. TAKE METHYLPREDNISOLONE DIRECTED, BEGIN TOMORROW (WEDNESDAY). YOU MAY TAKE OXYCODONE DIRECTED IF NEEDED FOR PAIN RELIEF. FOLLOW UP TOMORROW WITH DR. MOREL, CALL HER OFFICE IN A.M. FOR TIME. TAKE COPIES OF YOUR MRI SCANS WITH YOU WHEN YOU GO TO SEE DR. MOREL. RETURN TO E.R. IF YOU GET WORSE, ANY TIME. Prescriptions: Methylprednisolone [Medrol Dosepack (4 mg/Tab) 21 Tab/Dosepak] 4 mg PO ASDIR PRN #21 tab.[id number] PRN Reason: Referrals: ADOLFO QUAN MD [Primary Care Provider] - Follow up as needed
[2017-06-06 13:03] LABS: ABSOLUTE BASOPHILS # (AUTO) 0.1 10^3/uL (0.0-0.2); ABSOLUTE EOSINOPHILS # (AUTO) 0.1 10^3/uL (0.0-0.6); ABSOLUTE LYMPHOCYTES (AUTO) 0.8 10^3/uL (0.5-4.7); ABSOLUTE MONOCYTES (AUTO) 1.2 10^3/uL (0.1-1.4); ABSOLUTE NEUT (AUTO) 7.3 10^3/uL (1.7-8.2); BASOPHILS % (AUTO) 0.9 % (0-2); EOSINOPHILS % (AUTO) 0.8 % (0-6); HEMATOCRIT 39.9 % (36.0-47.0); HEMOGLOBIN 13.7 g/dL (12.0-15.5); LYMPHOCYTES % (AUTO) 8.9 % (13-45); MEAN CORPUSCULAR HEMOGLOBIN 31.9 pg (27.0-33.4); MEAN CORPUSCULAR HGB CONC 34.4 g/dL (32.0-36.0); MEAN CORPUSCULAR VOLUME 93 fl (80-97); MONOCYTES % (AUTO) 12.8 % (3-13); PLATELET COUNT 269 10^3/uL (150-450); RED CELL DISTRIBUTION WIDTH 13.2 % (11.5-14.0); SEGMENTED NEUTROPHILS % (AUTO) 76.6 % (42-78); TOTAL CELLS COUNTED % (AUTO) 100 %; WHITE BLOOD COUNT 9.5 10^3/uL (4.0-10.5)
[2017-06-06] MEDS ORDERED: HYDROMORPHONE HCL INJ/PF 2 MG/ML AMPULE IV ONE ×2 (13:11→20:29)
[2017-06-06 13:19] LABS: ALANINE AMINOTRANSFERASE 37 U/L (9-52); ALBUMIN 3.7 g/dL (3.5-5.0); ALKALINE PHOSPHATASE 82 U/L (38-126); ANION GAP 8 (5-19); ASPARTATE AMINO TRANSFERASE 28 U/L (14-36); BILIRUBIN,DIRECT 0.5 mg/dL (0.0-0.4); BILIRUBIN,TOTAL 0.9 mg/dL (0.2-1.3); BLOOD UREA NITROGEN 7 mg/dL (7-20); CALCIUM 10.4 mg/dL (8.4-10.2); CARBON DIOXIDE 22 mmol/L (22-30); CHLORIDE 105 mmol/L (98-107); GLUCOSE 98 mg/dL (75-110); POTASSIUM 3.6 mmol/L (3.6-5.0); SODIUM 134.9 mmol/L (137-145); TOTAL PROTEIN 6.3 g/dL (6.3-8.2)
--- NOTE | 2017-06-06 15:34 | RADIOLOGY REPORT (SQ) ---
EXAM DESCRIPTION: MRI LUMBAR SPINE COMBO COMPLETED DATE/TIME: 06/06/2017 2:14 pm REASON FOR STUDY: CHRONIC PAIN, INCREASING SINCE INJECTION 6d AGO COMPARISON: 07/15/2016. TECHNIQUE: Sagittal and Axial imaging includes T1, T1 post gadolinium, T2, STIR and gradient echo se quences. Coronal T2/HASTE imaging. CONTRAST TYPE AND DOSE: 10 mL MultiHance RENAL FUNCTION: GFR > 60. LIMITATIONS: None. FINDINGS: VISUALIZED UPPER ABDOMEN: Limited evaluation. No acute or suspicious findings suggested. SEGMENTATION: No transitional anatomy. The lowest well-developed disc space is labeled L5-S1. ALIGNMENT: Anatomic. VERTEBRAE: Intact. No fractures. BONE MARROW: Normal. No marrow replacement or reactive changes. DISC SIGNAL: Loss of disc height and signal throughout the lumbar spine. POSTERIOR ELEMENTS: Generally intact. No pars defect evident. HARDWARE: None in the spine. CORD AND CONUS: Normal in size and signal intensity. Conus at the appropriate level. SOFT TISSUES: No aortic aneurysm seen. No bulky retroperitoneal adenopathy or mass. No paraspinal mas s or fluid. L1-L2: Degenerative disc disease. L2-L3: Degenerated circumferential bulging disc. There is relative central canal acquired stenosis w ith facet arthropathy and hypertrophy. L3-L4: Broad-based degenerated circumferential bulging disc with posterior central disc protrusion e ccentric to the left. Superior to the disc level there is a disc fragment in the right anterior epid ural space displacing the thecal sac posteriorly. There is evidence of prominent facet arthropathy , ligamentous thickening ,and changes of central canal stenosis and bilateral lateral recess stenosis. L4-L5: Degenerated circumferential bulging disc. Facet arthropathy and hypertrophy. Foraminal narro wing prominent on the left. L5-S1: No disc bulge or disc herniation. LOWER THORACIC: Incompletely imaged. No stenosis seen. SACRUM: Visualized upper sacrum intact. IMPRESSION: 1 Since the previous study of 07/15/2016, there has been interval progression in central canal and lateral recess stenosis at L3-4 with eccentric disc herniation posteriorly to the left. Th ere is extruded disc fragment noted in the right anterior epidural space superior to L3-4 disc level. 2. There is acquired central canals stenosis again noted at L2-3. TECHNICAL DOCUMENTATION: JOB ID: [id number] [employer]- All Rights Reserved
[2017-06-06] MEDS ORDERED: METHYLPREDNISOLONE INJ 125 MG/2 ML SDV IV ONE (17:38)
[2017-06-06] MEDS ORDERED: NORMAL SALINE 1000 ML 500 ML IV ONE (20:34)
[2017-06-06] MEDS ORDERED: NORMAL SALINE 500 ML IV ONE (21:41)
--- NOTE | 2017-06-06 23:30 | RADIOLOGY REPORT (SQ) ---
EXAM DESCRIPTION: CT HEAD WITHOUT CLINICAL HISTORY: 72 years Female, altered mental status COMPARISON: None. TECHNIQUE: No contrast. This exam was performed according to our departmental dose-optimization program, which includes automated exposure control, adjustment of the mA and/or kV according to patient size and/or use of iterative reconstruction technique. FINDINGS: No hemorrhage or infarct. No mass, mass effect, or midline shift. Atherosclerosis. Moderate right maxillary air-fluid level. Brain and extra-axial structures appear otherwise intact. IMPRESSION: Moderate right maxillary sinusitis with air-fluid level. Else, no acute intracranial findings.
[2017-06-07] MEDS ORDERED: SUMATRIPTAN SUCCINATE INJ/PF 6 MG/0.5 ML SDV SUBCUT ONE (00:16)
[2017-06-07 01:42] LABS: APPEARANCE,URINE SLIGHTLY-CLOUDY; BILIRUBIN,URINE NEGATIVE (NEGATIVE); COLOR,URINE YELLOW; GLUCOSE, URINE >=500 mg/dL (NEGATIVE); KETONES,URINE 20 mg/dL (NEGATIVE); LEUKOCYTE ESTERASE,URINE TRACE (NEGATIVE); NITRITE,URINE NEGATIVE (NEGATIVE); PROTEIN,URINE NEGATIVE (NEGATIVE); URINE SPECIFIC GRAVITY 1.009; UROBILINOGEN,URINE NEGATIVE mg/dL (<2.0)
[2017-06-07 02:23] VITALS: BP 144/83
== END 2017-06-07 02:23 | disposition home or self-care (01) ==
LOC: ER 11:25
DX: G89.29 Other chronic pain (principal); M54.5 Low back pain; M51.36 Other intervertebral disc degeneration, lumbar region; R61 Generalized hyperhidrosis; R41.0 Disorientation, unspecified; R53.83 Other fatigue; R51 Headache; R47.01 Aphasia; Z88.6 Allergy status to analgesic agent; Z88.8 Allergy status to other drugs, medicaments and biological substances; Z87.891 Personal history of nicotine dependence
CPT/HCPCS: 99284; 96372; 96374; 96375; 36415; 87086; 82962; 85025; 87088; 80053; 81001; 87186; 72158; 70450; A9577; J2930; J1170; A9270; J7030; J3030

== ENCOUNTER → 2018-05-13 | Outpatient (CLI) | payer MEDICARE ==
--- NOTE | 2018-05-13 11:10 | RADIOLOGY REPORT (SQ) ---
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 LIMITATIONS: None. FINDINGS: ALIGNMENT: Reversal of cervical lordosis VERTEBRAE: Intact. BONE MARROW: Normal. No marrow replacement or reactive changes. DISCS: Diffuse decreased T2 weighted intervertebral disc signal. Post fusion at C5-6 and C6-7. HARDWARE: Post fusion at C5-6 and C6-7 with disc spacers and anterior fixation plates with anchoring screws in the C5, C6, and C7 vertebral bodies CORD AND BASE OF BRAIN: Normal in size and signal intensity. SOFT TISSUES: No soft tissue masses. C1-C2: No significant spinal stenosis. C2-C3: No central canal or right foraminal narrowing. High-grade left foraminal stenosis from facet and uncovertebral hypertrophy. C3-C4: Minimal posterior disc bulging is present. No central canal or right foraminal narrowing. Hi gh-grade left foraminal narrowing from asymmetric bulky left facet hypertrophy. C4-C5: No central canal or right foraminal narrowing. Mild left foraminal stenosis from left-sided f acet and uncovertebral hypertrophy. C5-C6: Post fusion. Broad diffuse posterior disc bulge and bony spurring is present partly effacing the ventral thecal sac and abutting the ventral cord without cord flattening or abnormal intrinsic co rd signal. No significant central canal narrowing. Mild bilateral foraminal stenosis from facet and uncovertebral hypertrophy. C6-C7: Broad diffuse posterior disc bulge and bony spurring partly effaces the ventral thecal sac and abuts the ventral cord without cord flattening or abnormal intrinsic cord signal. Borderline centra l canal narrowing. Moderate right foraminal narrowing, high-grade left foraminal narrowing from face t and uncovertebral hypertrophy. C7-T1: Broad diffuse posterior disc bulge and bony spurring partially effaces the ventral thecal sac without cord flattening or abnormal intrinsic cord signal. Mild to moderate bilateral foraminal narr owing is present. T1-2: At the bottom edge of the field of view. Small central disc protrusion/herniation is present, effacing the ventral thecal sac and abutting the ventral cord without cord flattening or abnormal in trinsic cord signal. Borderline central canal narrowing. This is best shown on sagittal midline meghana ge 11/29. No right foraminal narrowing. Mild left foraminal stenosis from facet hypertrophy. T2-3: At the bottom edge of the field of view. Degenerative mild grade 1 anterolisthesis of T2 over T3 results from bulky bilateral facet hypertrophy. Moderate bilateral foraminal narrowing. No cent ral stenosis OTHER: No other significant finding. IMPRESSION: Diffuse degenerative changes as above. TECHNICAL DOCUMENTATION: JOB ID: [id number] [employer]- All Rights Reserved Reading location - IP/workstation name: [email or web address]
== END ==
LOC: RAD 09:18
PROVIDERS: ATTEND Orthopaedic Surgery
DX: M47.12 Other spondylosis with myelopathy, cervical region (principal); M47.22 Other spondylosis with radiculopathy, cervical region
CPT/HCPCS: 72141

== ENCOUNTER → 2019-02-28 | Outpatient (CLI) | payer MEDICARE ==
--- NOTE | 2019-02-28 15:56 | RADIOLOGY REPORT (SQ) ---
EXAM DESCRIPTION: CERV SP 6 OR MORE COMPLETED DATE/TIME: 02/28/2019 1:48 pm REASON FOR STUDY: CERVICAL RADICULOPATHY COMPARISON: None. NUMBER OF VIEWS: Seven views. TECHNIQUE: AP, lateral, obliques, flexion, extension, and odontoid radiographic images acquired of t he cervical spine. LIMITATIONS: None. FINDINGS: MINERALIZATION: Normal. ALIGNMENT: There is reversal of the normal lordotic curvature of the cervical spine with grade 1 ante rolisthesis of C3 on C4 and C4 on C5. There is no atlantoaxial dissociation. FLEXION/EXTENSION: Dynamic subluxation at C5-C6 with retrolisthesis of C5 on C6 with extension. VERTEBRAE: The cervical vertebral body heights are preserved. There is no fracture. DISCS: The C4-C5 intervertebral disc space is narrowed. The patient has undergone prior discectomies with placement of intervertebral disc spacers at C5-C6 and C6-C7. FORAMINA: Evaluation is limited due to suboptimal position on the right oblique view ; there is narro wing of the foramina at C5-C6 and C6-C7 bilaterally due to uncovertebral hypertrophy. LATERAL AND POSTERIOR ELEMENTS: Intact. HARDWARE: ACDF hardware from C5 to C7. The left fixation screw is fractured and there are periprosth etic lucencies around both the C5 and C6 fixation screws. SOFT TISSUES: Calcifications projecting lateral to the C4 vertebral body are presumed to represent ca lcified atheromatous plaques at the carotid bifurcations. OTHER: No other significant finding. IMPRESSION: Status post ACDF from C5 to C7. The left fixation screw is fractured and there are perip rosthetic lucencies around both the C5 and C6 fixation screws. In addition, there is evidence of dyn amic subluxation with flexion at C5-C6 and adjacent segment disease at C4-C5. TECHNICAL DOCUMENTATION: JOB ID: [id number] [employer]- All Rights Reserved Reading location - IP/workstation name: [email or web address]
== END ==
LOC: RAD 13:15
PROVIDERS: ATTEND Specialist
DX: M54.12 Radiculopathy, cervical region (principal)
CPT/HCPCS: 72052

== ENCOUNTER → 2019-03-08 | Outpatient (CLI) | payer MEDICARE ==
--- NOTE | 2019-03-08 17:35 | RADIOLOGY REPORT (SQ) ---
EXAM DESCRIPTION: CT CERVICAL SPINE WITHOUT COMPLETED DATE/TIME: 03/08/2019 4:01 pm REASON FOR STUDY: M54.12 RADICULOPATHY, CERVICAL REGION M54.12 RADICULOPATHY, CERVICAL REGION COMPARISON: Cervical spine plain films 02/28/2019 MRI cervical spine 05/13/2018 TECHNIQUE: Axial images acquired through the cervical spine without intravenous contrast. Images re viewed with lung, soft tissue and bone windows. Reconstructed coronal and sagittal MPR images review ed. Images stored on PACS. All CT scanners at this facility use dose modulation, iterative reconstruction, and/or weight based d osing when appropriate to reduce radiation dose to as low as reasonably achievable (ALARA). [facility]: Dose Right [facility]: CareDose [facility]: Dose Right [facility]: Teradose 4D [facility]: [employer] RADIATION DOSE: CT Rad equipment meets quality standard of care and radiation dose reduction techniq ues were employed. CTDIvol: 26.4 mGy. DLP: 683 mGy-cm. mGy. LIMITATIONS: None. FINDINGS: ALIGNMENT: Reversal of cervical lordosis MINERALIZATION: Osteopenic VERTEBRAL BODIES: No compression fracture HARDWARE: Post fusion at the C5-6 and C6-7 level with metallic disc spacers, and anterior fixation pl ate and anchoring screws into the C5, C6, and C7 vertebral bodies. At the C5 level, there is lucency around folds screws in the anterior vertebral body worrisome for lo osening. Fracture of the distal tip of the left C5 vertebral body screw is present on axial image 48 . At the C6 level, there is lucency around both screws in the anterior C6 vertebral body worrisome for loosening, best shown on axial image 53. At the C6-7 level, screws are well anchored into the vertebral body. No hardware fracture. DISCS: Craniocervical junction, C1-2 are unremarkable. At C2-3, high-grade left foraminal narrowing from facet and uncovertebral hypertrophy is present. No right foraminal narrowing or central stenosis. At C3-4, high-grade left foraminal narrowing is present from asymmetric left-sided facet and uncovert ebral hypertrophy. No central stenosis or right foraminal narrowing. At C4-5, no significant central or foraminal stenosis is present. Post fusion at C5-6. No significant central stenosis. Moderate right, mild left foraminal narrowing . Post fusion at C6-7. No central canal or left foraminal narrowing. Moderate right foraminal narrowi ng from facet and uncovertebral hypertrophy C7-T1 is unremarkable. FACETS, LATERAL MASSES, POSTERIOR ELEMENTS: No fractures. No dislocation. No acute findings. VISUALIZED RIBS: No fractures. LUNG APICES AND SOFT TISSUES: No significant or acute findings. OTHER: No other significant finding. IMPRESSION: Lucency around the hardware at the C5 and C6 vertebral bodies worrisome for loosening. Other findings as above. TECHNICAL DOCUMENTATION: JOB ID: [id number] Quality ID # [id number]: Final reports with documentation of one or more dose reduction techniques (e.g., Au tomated exposure control, adjustment of the mA and/or kV according to patient size, use of iterative reconstruction technique) 2010 [employer]- All Rights Reserved Reading location - IP/workstation name: [email or web address]
== END ==
LOC: RAD 15:49
PROVIDERS: ATTEND Specialist
DX: M54.12 Radiculopathy, cervical region (principal)
CPT/HCPCS: 72125